=== PATIENT | female | born 1950 | race Caucasian/White ===

== ENCOUNTER 2024-12-31 09:38 | Outpatient (CLI) | payer MEDICARE, BC, SELFPAY ==
--- OUTSIDE RECORDS SUMMARY | 2024-12-31 10:46 | XMS_ITS | Clinical Summary ---
Author Organization [facility] Address [address] [place] [address] Phone Care Team Providers Care Wood Lathe Operator Name Role Phone Derick Andersen MD Primary Care Provider [phone] Allergies No known active allergies Medications Multiple Vitamins-Mineral s (MULTIVITAMIN ADULT PO) Take 1,000 mg by mouth daily. Active Green Tea, Camillia sinensis, 150 MG Capsule Take 150 mg by mouth daily. Active HYDROcodone-acet aminophen (NORCO) 5-325 MG Tablet Take 1 Tab by mouth every 4 hours as needed for Pain. Active ondansetron (ZOFRAN-ODT) 4 MG TABLET DISPERSIBLE Take 4 mg by mouth 2 times daily as needed for Nausea. Active Social History Tobacco Use Types Packs/Day Years Used Date Smoking Tobacco: Never Assessed Comments Unknown Sex and Gender Information Value Date Recorded Sex Assigned at Not on file Legal Sex Female 2:18 PM CDT Gender Identity Not on file Sexual Orientation Not on file Last Filed Vital Signs Vital Sign Reading Time Taken Comments Blood Pressure 138/76 02/14/2018 9:03 PM CDT Pulse 68 02/14/2018 9:03 PM CDT Temperature 36.3 C (97.4 F) 02/14/2018 9:03 PM CDT Respiratory Rate 16 02/14/2018 9:03 PM CDT Oxygen Saturation 98% 02/14/2018 9:03 PM CDT Inhaled Oxygen Concentration - - Weight 81.2 kg (179 lb) 02/02/2018 4:03 PM CDT Height 157.5 cm (5' 2 ) 02/02/2018 4:03 PM CDT Body Mass Index 32.74 02/02/2018 4:03 PM CDT Plan of Treatment Not on file Insurance MEDICARE Advance Directives * Full Code (Latest Code Status on File) Date Activated Date Inactivated Comments 12/26/2017 2:40 PM Care Teams Wood Lathe Operator Relationship Specialty Start Date End Date Derick Andersen MD [address] [place] [address] PCP - General Geriatric Medicine 12/18/17
--- OUTSIDE RECORDS SUMMARY | 2024-12-31 10:46 | XMS_ITS | Encounter Summary ---
Author Organization [facility] Address [address] [place] [address] Care Team Providers Care Burlapper Name Role Phone Derick Andersen MD Primary Care Provider [phone] Maged Souza MD Primary Care Provider [phone] Godfrey Soni MD Unavailable Puma Blue MD Unavailable [phone] Encounter Details Date Type Department Care Team (Latest Contact Info) Description 07/30/2018 Abstract [facility] Michelle Riley MD Social History Tobacco Use Types Packs/Day Years Used Date Smoking Tobacco: Never Assessed Comments Unknown Sex and Gender Information Value Date Recorded Sex Assigned at Not on file Legal Sex Female 9:41 PM CDT Gender Identity Not on file Sexual Orientation Not on file documented as of this encounter Plan of Treatment Upcoming Encounters Date Type Department Care Team (Late st Contact Info) Description 02/10/2025 2:45 PM CDT Office Visit [facility] [place] [address] Puma Blue MD [address] [facility] [address] [place] [address] documented as of this encounter Visit Diagnoses Not on filedocumented in this encounter Care Teams Burlapper Relationship Specialty Start Date End Date Derick Andersen MD [address] [place] [phone] PCP - General FAMILY PRACTICE 03/22/18 05/10/21 Maged Souza MD [address] [place] [phone] PCP - General FAMILY PRACTICE 05/11/21 Godfrey Soni MD [address] [place] [phone] Vascular/Materials Handling Equipment Operator INTERNAL MEDICINE 08/08/21 5 Puma Blue MD [address] [address] Physician INTERVENTIONAL CARDIOLOGY 11/28/24 documented as of this encounter
--- OUTSIDE RECORDS SUMMARY | 2024-12-31 10:47 | XMS_ITS | Encounter Summary ---
Author Organization [facility] Address [address] [place] [address] Care Team Providers Care Pigment Grinder Name Role Phone Derick Andersen MD Primary Care Provider [phone] Maged Souza MD Primary Care Provider Godfrey Soni MD Unavailable Puma Blue MD Unavailable [phone] Encounter Details Date Type Department Care Team (Late Contact Info) Description 03/01/2019 Abstract [facility] [address] [place] [address] , Generic Conversion, Social History Tobacco Use Types Packs/Day Years Used Date Smoking Tobacco: Never Assessed Comments Unknown Sex and Gender Information Value Date Recorded Sex Assigned at Not on file Legal Sex Female 9:41 PM CDT Gender Identity Not on file Sexual Orientation Not on file documented as of this encounter Plan of Treatment Upcoming Encounters Date Type Department Care Team (Late Contact Info) Description 02/10/2025 2:45 PM CDT Office Visit [facility] [address] [place] [address] Puma Blue MD [address] [facility] [address] [phone] documented as of this encounter Visit Diagnoses Not on filedocumented in this encounter Care Teams Pigment Grinder Relationship Specialty Start Date End Date Derick Andersen MD [address] [place] [phone] PCP - General FAMILY PRACTICE 03/22/18 05/10/21 Maged Souza MD [address] [place] [phone] PCP - General FAMILY PRACTICE 05/11/21 Godfrey Soni MD [address] [place] [phone] Vascular/Action Finisher INTERNAL MEDICINE 08/08/21 5 Puma Blue MD [address] [facility] [address] [address] Physician INTERVENTIONAL CARDIOLOGY 11/28/24 documented as of this encounter
--- OUTSIDE RECORDS SUMMARY | 2024-12-31 10:47 | XMS_ITS | Clinical Summary ---
Author Organization [facility] Address [address] [place] [address] Care Team Providers Care Tabular Typist Name Role Phone Maged Pastrana MD Primary Care Provider Puma Blue MD Unavailable [phone] Allergies Active Allergy Reactions Criticality Noted Date Comments Iodine Nausea and Vomiting 06/08/2022 Medications calcium carb-cholecalc iferol 600-800 MG-UNIT tabletIndicati ons:Nutritiona l Support Take 1 tablet by mouth 2 (two) times daily. Indications: Nutritional Support Active COMPRESSION STOCKINGS 20-30 MMHg Compression Stocking Knee High open or closed toe Dx I83.893 1 Container 6 1 Active COMPRESSION STOCKINGS 20-30 MMHg Compression Stocking Thigh High open or closed toe Dx I83.893 1 Container 4 2 Active Naproxen Sodium (ALEVE OR) Take by mouth daily as needed. Active psyllium (METAMUCIL) 51.7 % packetIndicati ons:Constipati on Take 1 packet by mouth daily. Indications: Constipation Active Green Tea 150 MG Cap Active aspirin EC (ECOTRIN) 81 MG tablet Take 1 tablet (81 mg total) by mouth daily. 90 tablet 2 4 Active rosuvastatin (CRESTOR) 10 MG tablet Take 1 tablet (10 mg total) by mouth nightly at bedtime. 4 Active Active Problems Problem Noted Date Diagnosed Date Osteoarthritis of right knee 12/31/2018 Osteoarthritis of left hip 10/17/2017 Chronic venous insufficiency Varicose veins of bilateral lower extremities with other complications Resolved Problems Problem Noted Date Diagnosed Date Resolved Date Follow-up examination after orthopedic surgery 05/30/2019 06/04/2020 Encounters Date Type Department Care Team Description 12/23/2024 2:14 PM CDT - 12/23/2024 11:59 PM CDT Hospital Encounter [facility] [address] [place] [address] Torie Reyes NP Discharge Disposition: Home or Self Care (Routine Discharge) 12/23/2024 Travel 11/18/2024 11:33 AM MAILER APPRENTICE - 11/18/2024 11:59 PM MAILER APPRENTICE Hospital Encounter [facility] [address] [place] [address] Torie Reyes NP Discharge Disposition: Home or Self Care (Routine Discharge) 11/18/2024 Travel 11/17/2024 Telephone [facility] [address] [place] [address] Godfrey Soni MD Reschedule from Last 3 Months Immunizations Name Administration Dates Next Due Influenza Adult (Generic) 11/23/2021(Deferred: P atient Refused) Family History Medical History Relation Comments No Known Problems Brother 3 Heart Disease Brother 4 Stroke Father Glaucoma Mother Heart Disease Mother Glaucoma Sister Relation Status Comments Brother 1 Alive Brother 2 Brother 3 Alive Brother 4 Alive Father Mother Sister Alive Social History Tobacco Use Types Packs/Day Years Used Date Smoking Tobacco: Never Smokeless Tobacco: Never Alcohol Use Standard Drinks/Week Comments Not Currently 0 (1 standard drink = 0.6 oz pur e alcohol) PHQ-2 Answer Date Recorded PHQ-2 Score - If the patient scores above 3, please move on to questions 3-9 0 11/23/2021 Comments No Sex and Gender Information Value Date Recorded Sex Assigned at Not on file Legal Sex Female 9:41 PM CDT Gender Identity Not on file Sexual Orientation Not on file Last Filed Vital Signs Vital Sign Reading Time Taken Comments Blood Pressure 154/85 04/01/2024 10:51 AM CDT Pulse 78 04/01/2024 10:51 AM CDT Temperature 36.1 C (97 F) 04/01/2024 10:51 AM CDT Respiratory Rate 18 04/01/2024 10:51 AM CDT Oxygen Saturation 98% 04/01/2024 10:51 AM CDT Inhaled Oxygen Concentration - - Weight 82.1 kg (181 lb) 03/25/2024 12:03 PM CDT Height 154.9 cm (5' 1 ) 03/25/2024 12:03 PM CDT Body Mass Index 34.2 03/25/2024 12:03 PM CDT Plan of Treatment Upcoming Encounters Date Type Department Care Team ([facility] st Contact Info) Description 02/10/2025 2:45 PM CDT Office Visit [facility] [place] [address] Puma Blue MD [address] [facility] [address] [address] Health Maintenance Due Date Last Done Comments Colorectal Cancer Screening Colonoscopy (10 Years) 1952 Hepatitis C 1970 DTaP, Tdap and Td Vaccines (1 - Tdap) 1971 Zoster Vaccines (1 of 2) 2002 RSV Immunization or 60+ Years (1 - Risk 60-74 years 1-dose series) 2012 Annual Medicare Wellness Visit 2017 Pneumococcal Vaccine: 65+ Years (1 of 1 - PCV) 2017 COVID-19 Vaccine (3 - season) 2024 12/03/2020, 11/12/2020 Mammogram Screening 09/09/2026 09/09/2024, 09/07/2023, 08/28/2022, Additional history exists Dexa Scan (General) Completed 12/23/2024 Meningococcal B Vaccine Aged Out No l onger eligible based on patient's age to complete this topic Meningococcal Vaccine Aged Out No belkis alejandro eligible based on patient's age to complete this topic RSV Immunizations Under 20 Months Aged Out No longer eligible based on patient's age to complete this topic Medical Devices Implanted Type Area Mailing Manager Device Identifier Shelf Expiration Date Model / Serial / Lot Hip Components Hip Components Description:Left hip Procedures Procedure Name Priority Date/Time Associated Diagnosis Comments BONE DENSITY/DEXA Routine 12/23/2024 2:5 3 PM CDT Post-menopausal XR KNEE RT 3V Routine 11/18/2024 12:05 PM MAILER APPRENTICE Right knee pain MG SCREENING W DERREK FREDI DIGI Routine 09/09/2024 11:26 AM MAILER APPRENTICE Encounter for screening mammogram for malignant neoplasm of breast from Last 3 Months or Most Recently Relevant to Health Maintenance Results * BONE DENSITY/DEXA (12/23/2024 2:53 PM CDT) Anatomical Region Laterality Modality Bone Bone Density 12/23/2024 3:08 PM CDT Impressions 12/23/2024 3:09 PM CDT Impression: 1. Within normal limits in the lumbar spine. 2. Consistent with osteopenia in the right hip. Ordered By: TORIE REYES Interpreted By: Devon Milton MD, 12/23/2024 3:08 PM Narrative 12/23/2024 3:09 PM CDT [address] [place] [address] Examination: DEXA Bone densitometry Clinical history: Postmenopausal. Osteoporosis screening. Prior left hip arthroplasty. Comparison: None. Technique: DEXA bone mineral density evaluation was performed in the AP projection over the lumbar spine and over both hips in the AP projection utilizing standard imaging techniques. Assessment: The BMD measured at the AP spine L1-L4 is 1.217 g/cm2 with a T-score of 1.5 and a Z-score of 3.8. Bone density is up to 10% below young normal. This patient is considered normal according to the World Health Organization (WHO) criteria. Fracture risk is low. The BMD measured at the femur total right is 0.700 g/cm2 with a T-score of -2.0 and a Z-score of -0.4. The patient is considered osteopenic according to World Health Organization (WHO) criteria. Bone density is between 10 and 25% below young normal. Fracture risk is moderate. Treatment is advised. FRAX 10-year fracture risk: Major Osteoporotic Fracture: 11%. Hip Fracture: 2.3%. Recommendations: All patients should ensure an adequate intake of dietary calcium and vitamin D. The NOF recommend adults under the age of 50 need 1000 mg of calcium and 400-800 IU of vitamin D daily. Effective therapy for the prevention and treatment of osteoporosis include biphosphonates. Follow-up: People with diagnosed cases of osteoporosis or at high risk for fracture should have regular bone mineral density test. For patients eligible for Medicare, routine testing is allowed once every 2 years. Testing frequency can be increased to one year for patients who have rapidly progressing disease, those who are receiving or discontinuing medical therapy to restore bone mass, or have additional risk factors. Based on these results, a followup exam is recommended in two years. Procedure Note Devon Milton MD - 12/23/[address] [place] [address] Examination: DEXA Bone densitometry Clinical history: Postmenopausal. Osteoporosis screening. Prior left hiparthroplasty. Comparison: None. Technique: DEXA bone mineral density evaluation was performed in the APprojection over the lumbar spine and over both hips in the AP projectionutilizing standard imaging techniques. Assessment: The BMD measured at the AP spine L1-L4 is 1.217 g/cm2 with a T-score of1.5 and a Z-score of 3.8. Bone density is up to 10% below young normal.This patient is considered normal according to the World HealthOrganization (WHO) criteria. Fracture risk is low. The BMD measured at the femur total right is 0.700 g/cm2 with a T-score of-2.0 and a Z-score of -0.4. The patient is considered osteopenicaccording to World Health Organization (WHO) criteria. Bone density isbetween 10 and 25% below young normal. Fracture risk is moderate.Treatment is advised. FRAX 10-year fracture risk: Major Osteoporotic Fracture: 11%. Hip Fracture: 2.3%. Recommendations: All patients should ensure an adequate intake of dietary calcium andvitamin D. The NOF recommend adults under the age of 50 need 1000 mg ofcalcium and 400-800 IU of vitamin D daily. Effective therapy for theprevention and treatment of osteoporosis include biphosphonates. Follow-up: People with diagnosed cases of osteoporosis or at high risk for fractureshould have regular bone mineral density test. For patients eligible forMedicare, routine testing is allowed once every 2 years. Testing frequencycan be increased to one year for patients who have rapidly progressingdisease, those who are receiving or discontinuing medical therapy torestore bone mass, or have additional risk factors. Based on these results, a followup exam is recommended in two years. Impression: 1. Within normal limits in the lumbar spine. 2. Consistent with osteopenia in the right hip. Ordered By: TORIE REYES Interpreted By: Devon Milton MD, 12/23/2024 3:08 PM Torie Reyes LIFE SCIENCE TAXONOMIST DEXA Fin al Result * XR KNEE RT 3V (11/18/2024 12:05 PM MAILER APPRENTICE) Anatomical Region Laterality Modality Knee Radiographic Andree ging 11/18/2024 1:39 PM MAILER APPRENTICE Impressions 11/18/2024 1:41 PM MAILER APPRENTICE IMPRESSION: Advanced degenerative changes are present in the lateral compartment of the right knee and patellofemoral compartment. The degenerative changes of previous advanced on prior study of May 25, 2021. There has been slight interval progression. Ordered By: TORIE REYES Interpreted By: Hari Herrera MD, 11/18/2024 1:39 PM Narrative 11/18/2024 1:41 PM MAILER APPRENTICE [address] [place] [address] Procedure(s): XR KNEE RT 3V Date of service: 11/18/2024 11:55 AM Provided clinical information: 74 years, Female, right knee pain chronic right knee pain Procedure and materials: 3 views right knee. Comparison studies: May 25, 2021. Findings: Significant joint space narrowing is present involving the lateral compartment of the right knee with prominent osteophytic changes. Joint space narrowing of the patellofemoral compartment is present. Accessory ossicles are present superior to the patella. Prominent patellar osteophyte. No acute bony abnormality is present. Procedure Note Hari Herrera MD - 11/18/2024 [facility] [address] [facility] [place] [address] Procedure(s): XR KNEE RT 3V Date of service: 11/18/2024 11:55 AM Provided clinical information: 74 years, Female, right knee pain chronic right knee pain Procedure and materials: 3 views right knee. Comparison studies: May 25, 2021. Findings: Significant joint space narrowing is present involving the lateralcompartment of the right knee with prominent osteophytic changes. Jointspace narrowing of the patellofemoral compartment is present. Accessoryossicles are present superior to the patella. Prominent patellarosteophyte. No acute bony abnormality is present. IMPRESSION: Advanced degenerative changes are present in the lateral compartment ofthe right knee and patellofemoral compartment. The degenerative changes ofprevious advanced on prior study of May 25, 2021. There has beenslight interval progression. Ordered By: TORIE REYES Interpreted By: Hari Herrera MD, 11/18/2024 1:39 PM us Torie Reyes LIFE SCIENCE TAXONOMIST GENERAL IMAGING Fin al Result * MG SCREENING W DERREK FREDI DIGI (09/09/2024 11:26 AM MAILER APPRENTICE) Anatomical Region Laterality Modality Breast Bilateral Mammography 09/09/2024 3:52 PM MAILER APPRENTICE Impressions 09/09/2024 3:53 PM MAILER APPRENTICE IMPRESSION: No suspicious change since the previous exams. Recommendation: 1: Routine Screening Bilateral in 1 Year Assessment: ACR BI-RADS 2 - BENIGN FINDING(S) Ordered By: MAGED PASTRANA Interpreted By: Devon Milton MD, 09/09/2024 3:52 PM Narrative 09/09/2024 3:53 PM MAILER APPRENTICE [address] [place], [facility] Examination: Digital screening mammogram with CAD. Clinical history: Asymptomatic patient presents for routine screening. Comparison: 09/07/2023, 08/28/2022, 08/10/2021, 07/16/2020. Technique: Bilateral digital mammograms. The exam was interpreted with the use of a computer-aided detection (CAD) system. Additional 3-D tomosynthesis images were acquired. Tissue density: There are scattered areas of fibroglandular density. Findings: The breast tissue contains scattered fibroglandular densities. Benign-appearing calcification noted. Benign-appearing intramammary lymph node on the right again evident. No suspicious mass, microcalcification or area of architectural distortion can be identified. From a mammographic standpoint, routine followup in one year would seem adequate. us Maged Pastrana MD MAMMO Final Resul t from Last 3 Months or Most Recently Relevant to Health Maintenance Insurance Member Subscriber Plan / Payer (Ef fective 1998-Present) Name:Heidi Simon Relation to Subscriber:Spouse Name:James Simon Date of :1955 (Home) Address: [address] [place] [address] Payer ID:Not on file Group ID:[id number] Type:Not on file Address: [facility] [address] [place] [address] MEDICARE Care Teams Tabular Typist Relationship Specialty Start Date End Date Maged Pastrana MD [address] [place] [phone] PCP - General FAMILY PRACTICE 05/11/21 Puma Blue MD [address] [facility] [address] [address] Physician INTERVENTIONAL CARDIOLOGY 11/28/24
--- OUTSIDE RECORDS SUMMARY | 2024-12-31 10:47 | XMS_ITS | Encounter Summary ---
Author Organization [facility] Address [address] [place] [address] Care Team Providers Care Life Insurance Agent Name Role Phone Maged Souza MD Primary Care Provider Godfrey Soni MD Unavailable Puma Blue MD Unavailable [phone] Encounter Details Date Type Department Care Team (Late Contact Info) Description 05/12/2022 Prep for Procedure [facility] [address] [place], [place] [id number] Godfrey Soni MD [address] [facility], [address] [place] [address] Social History Tobacco Use Types Packs/Day Years Used Date Smoking Tobacco: Never Smokeless Tobacco: Never Alcohol Use Standard Drinks/Week Comments Not Currently 0 (1 standard drink = 0.6 oz pur e alcohol) PHQ-2 Answer Date Recorded PHQ-2 Score - If the patient scores above 3, please move on to questions 3-9 0 11/23/2021 Comments Unknown Sex and Gender Information Value Date Recorded Sex Assigned at Not on file Legal Sex Female 9:41 PM CDT Gender Identity Not on file Sexual Orientation Not on file documented as of this encounter Plan of Treatment Upcoming Encounters Date Type Department Care Team (Late Contact Info) Description 02/10/2025 2:45 PM CDT Office Visit [facility] [place] [phone] Puma Blue MD [address] [address] documented as of this encounter Visit Diagnoses Not on filedocumented in this encounter Administered Medications Active Administered Medications - up to 3 most recent administrations Medication Order MAR Action Action Date Dose Rate Site diazePAM (VALIUM) tablet 10 mg 10 mg, Oral, Every 6 hours PRN, Sedation, 2 doses, Starting on Mikaela 06/15/22 at 0000, Until Discontinued documented in this encounter Additional Health Concerns Assessment Noted Time PHQ-9 Depression Total Score: 2 11/24/19 22 10:53 AM PRINTING MACHINE OPERATOR TAPE RULES documented as of this encounter Care Teams Life Insurance Agent Relationship Specialty Start Date End Date Maged Souza MD [address] [place] [phone] PCP - General FAMILY PRACTICE 05/11/21 Godfrey Soni MD [address] [place] [phone] Vascular/Jewel Setter INTERNAL MEDICINE 08/08/21 5 Puma Blue MD [address] [facility] [address] [place] [address] Physician INTERVENTIONAL CARDIOLOGY 11/28/24 documented as of this encounter
--- OUTSIDE RECORDS SUMMARY | 2024-12-31 10:47 | XMS_ITS | Clinical Summary ---
Author Organization [facility] Nad[facility] Address [address] [place] [address] Care Team Providers Care Gill Tender Name Role Phone Derick Andersen MD Primary Care Provider [phone] Ariella Guadarrama RN Unavailable Unavailable Source Comments [facility],non-owned Affiliates and Associated Physician Practices is amultiple site organization consisting of ambulatory clinics and hospital sitesin [place], [place], [place] and [place]. This disclosure is being madepursuant to the Care Everywhere program and may not contain all information available regarding this patient. Last updated 18.[facility] Allergies Active Allergy Reactions Criticality Noted Date Comments Contrast-Iodinated Agents Fo r Ct/Other Nausea and/or Vomiting 12/13/2017 Medications * Be aware that medications may not be up to date on this document. Alwaysverify current medications with the patient. Medication Sig Dispensed Refills Start Date End Date Status multivitamin daily (THERAGRAN) tablet Take 1 tablet by mouth daily with food Active GREEN TEA, CAMILLIA SINENSIS, PO Take 1 tablet by mouth once daily Active cephalexin (KEFLEX) 500 MG tablet Take 500 mg by mouth 3 times daily Active Active Problems Problem Noted Date Diagnosed Date Postoperative wound abscess 01/30/2018 Incisional hernia with obstruction but no gangre ne 10/30/2017 Diagnosis unknown 10/30/2017 Social History Tobacco Use Types Packs/Day Years Used Date Smoking Tobacco: Never Smokeless Tobacco: Never Alcohol Use Standard Drinks/Week Comments No 0 (1 standard drink = 0.6 oz pur e alcohol) Sex and Gender Information Value Date Recorded Sex Assigned at Not on file Gender Identity Not on file Sexual Orientation Not on file Last Filed Vital Signs Vital Sign Reading Time Taken Comments Blood Pressure 163/71 03/29/2018 1:35 PM CDT Pulse 78 03/29/2018 1:35 PM CDT Temperature 36.6 C (97.8 F) 03/29/2018 1:35 PM CDT Respiratory Rate 18 03/29/2018 1:35 PM CDT Oxygen Saturation 93% 03/29/2018 1:35 PM CDT Inhaled Oxygen Concentration - - Weight 78.9 kg (174 lb) 03/29/2018 9:09 AM CDT Height 157.5 cm (5' 2 ) 03/29/2018 9:09 AM CDT Body Mass Index 31.83 03/29/2018 9:09 AM CDT Plan of Treatment Health Maintenance Due Date Last Done Comments BONE DENSITY TESTING 1950 COLOGUARD (AGES 45-75) - COL ON CA SCREENING 1952 COLON MONITORING 1952 COLONOSCOPY - COLON CA SCREENING 1952 CT COLONOGRAPHY - COLON CA SCREENING 1952 Colorectal Cancer Screening 1952 FIT - COLON CA SCREENING 1952 FLEX SIG - COLON CA SCREENING 1952 LIPID TESTING 1952 MAMMOGRAM 1952 HEPATITIS C SCREENING 10/28/1970 DTAP/TDAP/TD VACCINES (1 - Tdap) 1971 PNEUMOCOCCAL VACCINE 50+ (1 of 1 - PCV) 2002 ZOSTER VACCINE (1 of 2) 2002 COVID-19 VACCINE ( - 2023-2 5 season) 2024 DEPRESSION SCREENING 09/24/2024 INFLUENZA VACCINE (Season Ended) 2025 Respiratory Syncytial Virus (RSV) Vaccine Pt: or over 60 yrs (1 - 1-dose 75+ series) 2027 HEPATITIS B VACCINE Aged Out No longe r eligible based on patient's age to complete this topic HIB VACCINE Aged Out No longer eligi ble based on patient's age to complete this topic HPV VACCINE Aged Out No longer eligi ble based on patient's age to complete this topic MENINGOCOCCAL (Group B) VACC INE SHARED DECISION-MAKING Aged Out No longer eligibl e based on patient's age to complete this topic MENINGOCOCCAL GROUPS A/C/Y/W VACCINE Aged Out No longer eligible b ased on patient's age to complete this topic Medical Devices Implanted Type Area Earth Burner Device Identifier Shelf Expiration Date Model / Serial / Lot Mtrx Tissue [id number] Strattice Prcn Derm Implanted:Qty: 1 on 10/30/2017 by Eugenio Ramirez Jr., MD at [facility] N/A: Abdomen [employer] 09/23/2018 [id number] / / [id number] Additional Health Concerns Infection Onset Date 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
--- NOTE | 2024-12-31 11:15 | NEURO_ITS ---
Impression: # Complains of numbness of right hand. ? # Right Carpal Tunnel Syndrome. ? # Right ulnar neuropathy across the elbow. ? # Normal needle/EMG exam. Nerve Conduction Studies Anti Sensory Summary Table ?Stim Site NR Peak (ms) P-T Amp (?V) Site1 Site2 Delta-P (ms) Dist (cm) Christian (m/s) Right Median Anti Sensory (2-3nd Digit) Wrist ? 4.8 14.4 Wrist 2-3nd Digit 4.8 14.0 29 Wrist ? 4.6 17.3 Wrist 2-3nd Digit 4.8 14.0 29 Right Radial Anti Sensory (Base 1st Digit) Wrist ? 1.8 28.2 Wrist Base 1st Digit 1.8 0.0 Right Ulnar Anti Sensory (5th Digit) Wrist ? 2.2 45.8 Wrist 5th Digit 2.2 14.0 64 Motor Summary Table ?Stim Site NR Onset (ms) O-P Amp (mV) Site1 Site2 Delta-0 (ms) Dist (cm) Christian (m/s) Right Median Motor (Abd Poll Brev) Wrist ? 4.1 3.0 Elbow Wrist 4.1 26.0 63 Elbow ? 8.2 5.8 Right Ulnar Motor (Abd Dig Minimi) Wrist ? 2.4 6.3 A Elbow Wrist 5.0 27.0 54 A Elbow ? 7.4 4.9 B Elbow Wrist 3.3 19.0 58 B Elbow ? 5.7 4.5 F Wave Studies ?NR F-Lat (ms) L-R F-Lat (ms) Right Median (Mrkrs) (Abd Poll Brev) ? 25.96 Right Ulnar (Mrkrs) (Abd Dig Min) ? 25.74 EMG ?Side Muscle Nerve Root Ins Act Fibs Amp Dur Recrt Comment Right 1stDorInt Ulnar C8-T1 Nml Nml Nml Nml Nml Right Ext Indicis Radial (Post Int) C7-8 Nml Nml Nml Nml Nml Right Ext Digitorum Radial (Post Int) C7-8 Nml Nml Nml Nml Nml Right BrachioRad Radial C5-6 Nml Nml Nml Nml Nml Right PronatorTeres Median C6-7 Nml Nml Nml Nml Nml Right Abd Poll Brev Median C8-T1 Nml Nml Nml Nml Nml Right ABD Dig Min Ulnar C8-T1 Nml Nml Nml Nml Nml Right FlexPolLong Median (Ant Int) C7-8 Nml Nml Nml Nml Nml Right Abd Poll Long Radial (Post Int) C7-8 Nml Nml Nml Nml Nml MTDD
== END 2024-12-31 09:39 | disposition home or self-care (01) ==
PROVIDERS: PCP Registered Nurse; Visit Provider Registered Nurse
DX: G56.01 Carpal tunnel syndrome, right upper limb (principal); G56.21 Lesion of ulnar nerve, right upper limb
CPT/HCPCS: 95886; 95909